=== PATIENT | female | born 1995 | race Caucasian/White ===

== ENCOUNTER 2017-09-28 02:13 | Outpatient (CLI) | payer BC ==
[~2017-09-28] VITALS: Ht 154.9 cm; Wt 81.6 kg
[2017-09-28 02:45] VITALS: BP 136/89
[2017-09-28] MEDS ORDERED: PRENATAL TABLE1 EAC3 PO (02:50)
[2017-09-28 04:12] VITALS: BP 140/89
[2017-09-28 06:01] VITALS: BP 133/89
== END 2017-09-28 08:00 | disposition home or self-care (01) ==
LOC: LDRP-OP 02:13 → 2WEST 02:14 → LDRP-OP 11-03 12:53
DX: O47.1 False labor at or after 37 completed weeks of gestation (principal); Z3A.39 39 weeks gestation of pregnancy
CPT/HCPCS: 59025; G0378

== ENCOUNTER 2017-09-29 20:09 | Inpatient (IN) | payer BC ==
[~2017-09-29] VITALS: Ht 154.9 cm; Wt 82.0 kg
[2017-09-29] VITALS (16 sets, daily range): BP systolic 116–158; BP diastolic 63–96
[~2017-09-29 20:09] MED LIST: PRENATAL TABLE1 EAC3 PO
[2017-09-29 21:03] LABS: EOSINOPHIL (%) 0.2 % (0-5); HEMATOCRIT 41.3 % (36.0-46.0); IMMATURE GRANULOCYTE (%) 0.9 % (0.0-0.7); IMMATURE GRANULOCYTE COUNT 0.1 K/uL; INSTRUMENT ABS NEUTROPHIL CT 11.8 K/uL; LYMPHOCYTE COUNT 2.2 K/uL (1.0-2.8); MCH 28.2 PG (29.0-34.0); MCHC 33.9 G/DL (30.0-36.0); MCV 83.3 FL (83-99); MEAN PLAT.VOLUME 11.5 uM^3 (9.5-12.4); MONOCYTE COUNT 0.8 K/uL (0-0.8); NEUTROPHIL (%) 79.4 % (45-76); NEUTROPHIL COUNT 11.8 K/uL (1.8-6.4); PLATELET COUNT 130 K/uL (156-360); RBC DIS.WIDTH-CV 13.7 % (11.8-14.6); RBC DIS.WIDTH-SD 41.4 % (39-53); RED BLOOD COUNT 4.96 M/uL (3.80-5.20); WHITE BLOOD COUNT 14.9 K/uL (4.1-10.2)
[2017-09-29 21:13] LABS: ANION GAP 12 MEQ/L (2-14); CHLORIDE 109 MEQ/L (99-109); SAMPLE HEMOLYSIS CHECK 0; SAMPLE ICTERIC CHECK 0; SAMPLE LIPEMIA CHECK 0; SODIUM 136 MEQ/L (136-147); TOTAL BILIRUBIN 0.9 MG/DL (0.0-1.0)
[2017-09-29 21:19] LABS: ALKALINE PHOSPHATASE 200 IU/L (3-129); GFR ESTIMATE (CALCULATED) > 59 mL/min/; GLUCOSE 84 mg/dL (70-99); UREA NITROGEN (BUN) 12 mg/dL (9-23)
[2017-09-30] VITALS (16 sets, daily range): BP systolic 100–146; BP diastolic 57–86
[2017-09-30 02:35] LABS: UR CREATININE CONCENTRATION 233.9 MG/DL
[2017-09-30] MEDS ORDERED: ENDOCET 5-3251 EACH PO (08:50)
[2017-09-30] MEDS ORDERED: IBUPROFEN800 MG PO (08:50)
[2017-10-01 06:50] LABS: EOSINOPHIL (%) 0.2 % (0-5); HEMATOCRIT 30.9 % (36.0-46.0); IMMATURE GRANULOCYTE (%) 1.2 % (0.0-0.7); IMMATURE GRANULOCYTE COUNT 0.2 K/uL; INSTRUMENT ABS NEUTROPHIL CT 13.7 K/uL; LYMPHOCYTE COUNT 2.6 K/uL (1.0-2.8); MCV 84.9 FL (83-99); MEAN PLAT.VOLUME 11.6 uM^3 (9.5-12.4); MONOCYTE (%) 4.9 % (3-12); MONOCYTE COUNT 0.9 K/uL (0-0.8); NEUTROPHIL (%) 78.5 % (45-76); NEUTROPHIL COUNT 13.7 K/uL (1.8-6.4); PLATELET COUNT 130 K/uL (156-360); RBC DIS.WIDTH-CV 13.7 % (11.8-14.6); RBC DIS.WIDTH-SD 42.5 % (39-53); WHITE BLOOD COUNT 17.4 K/uL (4.1-10.2)
[2017-10-01 06:51] LABS: RED BLOOD COUNT 3.64 M/uL (3.80-5.20)
[2017-10-01 19:00] VITALS: BP 111/61
[2017-10-01 23:00] VITALS: BP 132/82
[2017-10-02 03:00] VITALS: BP 122/71
[2017-10-02 07:45] VITALS: BP 123/81
== END 2017-10-02 14:15 | disposition home or self-care (01) | DRG 766 ==
LOC: LDRP-OP 20:09 → 2WEST 20:10 → LDRP-OP 11-03 08:17
PROVIDERS: Obstetrics & Gynecology
PROC: 3E0R3BZ Introduction of Anesthetic Agent into Spinal Canal, Percutaneous Approach (ICD-10-PCS; 2017-09-29)
PROC: 00HU33Z Insertion of Infusion Device into Spinal Canal, Percutaneous Approach (ICD-10-PCS; 2017-09-29)
PROC: 3E033VJ Introduction of Other Hormone into Peripheral Vein, Percutaneous Approach (ICD-10-PCS; 2017-09-29)
PROC: 10D00Z1 Extraction of Products of Conception, Low, Open Approach (ICD-10-PCS; principal; 2017-09-30)
PROC: 10907ZC Drainage of Amniotic Fluid, Therapeutic from Products of Conception, Via Natural or Artificial Opening (ICD-10-PCS; 2017-09-30)
DX: O76 Abnormality in fetal heart rate and rhythm complicating labor and delivery (principal); O62.1 Secondary uterine inertia; O77.0 Labor and delivery complicated by meconium in amniotic fluid; O99.824 Streptococcus B carrier state complicating childbirth; Z3A.39 39 weeks gestation of pregnancy; Z37.0 Single live birth
CPT/HCPCS: 80053; 82570; 84156; 85025; 86850; 86900; 86901; C1755; G0378; J0690; J1100; J2274; J2405; J2540; J3010; J7120